=== PATIENT | male | born 1945 | race Caucasian/White ===

== ENCOUNTER 2020-07-05 06:45 | Inpatient (IN) | payer MEDICARE, MEDICAID, SELFPAY ==
[2020-07-05] VITALS (10 sets, daily range): BP systolic 106–130; BP diastolic 49–63; PULSE 77–121; RESP 16–20; TEMP 35.9–36.3; O2SAT 94–100; BMI 28.3
--- NOTE | ~2020-07-05 | XR_ITS ---
EXAMINATION: XR hip LT 2V w AP pelvis DATE: 07/06/2020 11:14 INDICATION: Left hip fracture. Bacteremia. TECHNIQUE: An anteroposterior view of the pelvis and 2 views of left hip were obtained. COMPARISON: None. FINDINGS: There is an intertrochanteric fracture deformity of proximal left femur with internal fixat ion with antegrade intramedullary coral, femoral head/neck screw, and distal interlocking screw. There is 3 mm lucency adjacent to the intramedullary coral at its proximal and lateral aspect. A fracture fra gment at the lesser trochanter is ununited. There is mild right hip osteoarthritis and moderate left hip osteoarthritis. There is moderate lumbar spondylosis. IMPRESSION: 1. Fracture deformity of proximal left femur with internal fixation. Lucency adjacent to the femoral intramedullary coral at its proximal lateral aspect may be secondary to loosening or infection. 2. Mild right hip osteoarthritis and moderate left hip osteoarthritis. Reviewed, dictated and finalized at location A. IMPRESSION: 1. Fracture deformity of proximal left femur with internal fixation. Lucency ad jacent to the femoral intramedullary coral at its proximal lateral aspect may be secondary to loosening or infection. 2. Mild right hip osteoarthritis and moderate left hip osteoarthritis.
--- NOTE | ~2020-07-05 | US_ITS ---
EXAMINATION: US venous doppler [facility] DATE: 07/06/2020 08:08 INDICATION: Lower limb edema. TECHNIQUE: Grayscale ultrasound images without and with compression and Doppler ultrasound images of the bilateral lower extremity veins were obtained. COMPARISON: None. FINDINGS: The visualized portions of right common femoral vein, profunda (deep) femoral vein, femoral vein, pop liteal vein, peroneal veins, posterior tibial veins, and greater saphenous vein outflow are patent. The visualized portions of left common femoral vein, profunda femoral vein, femoral vein, popliteal v ein, peroneal veins, posterior tibial veins, and greater saphenous vein outflow are patent. IMPRESSION: 1. No deep venous thrombosis. Reviewed, dictated and finalized at location A.
--- NOTE | ~2020-07-05 | XR_ITS ---
EXAMINATION: XR chest 1V portable DATE: 07/05/2020 11:01 INDICATION: Gastrointestinal hemorrhage. TECHNIQUE: A single frontal view of the chest was obtained. COMPARISON: Chest single view 08/09/2008, CT abdomen and pelvis 08/09/2008 FINDINGS: There is a moderate-sized left pleural effusion. There is a diffuse interstitial pattern, c onsistent with mild pulmonary edema. There are chronic airspace opacities in medial right lower lung zone, consistent with rounded atelectasis. There is a small right pleural effusion. There are airspac e opacities in left lung and right midlung zone. No pneumothorax. Cardiomegaly is noted. Median hawkins otomy wires and mediastinal surgical clips are seen, likely from prior coronary artery bypass graftin g. IMPRESSION: 1. Small right and moderate-sized left pleural effusions. 2. Mild pulmonary edema. 3. Airspace opacities in left lung and right midlung zone, consistent with atelectasis versus pneumon ia. 4. Cardiomegaly. Reviewed, dictated and finalized at location A. IMPRESSION: 1. Small right and moderate-sized left pleural effusions. 2. Mild pulmonary edema. 3. Airspace opacities in left lung and right midlung zone, consistent with atel ectasis versus pneumonia. 4. Cardiomegaly.
[2020-07-05 07:01] LABS: Basophils Percent Auto 0.1 % (0.2-1.2); Eosinophils Absolute Auto 0.1 K/mm3 (0-0.3); Eosinophils Percent Auto 0.2 % (0-4.4); Hematocrit 26.2 % (42.0-52.0); Immature Granulocyte Absolute 0.46 K/mm3 (0.00-0.031); Immature Granulocyte Percent A 1.9 % (0-0.5); Lymphocytes Absolute Auto 1.45 K/mm3 (0.9-3.2); Lymphocytes Percent Auto 6.1 % (18.3-44.2); Mean Corpuscular HGB Conc 30.5 g/dl (32-36); Mean Corpuscular Hemoglobin 29.1 pg (26-34); Mean Corpuscular Volume 95.3 fl (80-100); Mean Platelet Volume 10.7 fl (7.4-10.4); Monocytes Absolute Auto 1.1 K/mm3 (0.1-0.6); Monocytes Percent Auto 4.6 % (2.6-8.5); Neutrophils Absolute Auto 20.5 K/mm3 (1.3-6.7); Neutrophils Percent Auto 87.1 % (45.5-73.1); Nucleated Red Blood Cells Perc 0.1 % (0.0-0.2); Platelet Count Result 257 k/mm3 (150-375); Red Blood Count 2.75 M/mm3 (4.6-6.20); Red Cell Distribution Width 17.9 % (11.5-14.5); White Blood Count 23.6 K/mm3 (4.5-10.0)
--- NOTE | 2020-07-05 07:05 | PC.NURSE ---
pt O2 88 per EDP Zeus pt put on 2 L oxygen via nasal canula
[2020-07-05 07:13] LABS: Alanine Aminotransferase 23 U/L (4-50); Albumin Level 2.5 g/dL (3.5-5.1); Alkaline Phosphatase 181 U/L (38-126); Anion Gap 6 mmol/L (8-16); Aspartate Amino Transferase 44 U/L (17-59); Bilirubin,Total 0.8 mg/dL (0.2-1.3); Blood Urea Nitrogen 57 mg/dL (9-20); Calcium 7.9 mg/dL (8.4-10.2); Carbon Dioxide 29 mmol/L (22-30); Chloride 105 mmol/L (98-107); Estimated CRCL calculation 23 ml/min; Estimated Glomerular Filt Rate 31; Glucose 96 mg/dL (75-110); Sodium 140 mmol/L (137-145)
--- NOTE | 2020-07-05 07:31 | ED.GIBLEED ---
HPI - GI Bleed General Chief complaint: GI Bleed Stated complaint: ?GI Bleed Time Seen by Provider: 07/05/20 07:30 Source: patient Related Data Home Medications Medication Instructions Recorded Confirmed acetaminophen 500 mg PO TID PRN 07/05/20 albuterol mcg INHALATION 07/05/20 allopurinol 100 mg PO DAILY 07/05/20 apixaban [Eliquis] 5 mg PO BID 07/05/20 aspirin 81 mg PO DAILY 07/05/20 atorvastatin 40 mg PO HS 07/05/20 ferrous sulfate 325 mg PO BID 07/05/20 fluticasone propion-salmeterol 2 puff INHALATION Q12H 07/05/20 [Advair HFA] furosemide [Lasix] 40 mg PO BID 07/05/20 hydrocodone-acetaminophen 1 tablet PO Q8H PRN 07/05/20 ibuprofen 200 mg PO Q6H PRN 07/05/20 melatonin 5 mg PO HS PRN 07/05/20 metoprolol tartrate 50 mg PO Q12H 07/05/20 Allergies Allergy/AdvReac Type Severity Reaction Status Date / Time No Known Allergies Allergy Unverified 07/05/20 07:21 [facility] Social History Social History Smoking status: Former smoker Second hand tobacco smoke exposure: No Smoking end date: 02/08/84 Alcohol intake: current Course Vital Signs Vital signs: Vital Signs Temperature 36.3 C L 07/05/20 06:45 Pulse Rate 91 07/05/20 06:45 Respiratory Rate 16 07/05/20 06:45 Blood Pressure 124/63 07/05/20 06:45 Pulse Oximetry 95 07/05/20 06:45 Temperature 36.3 C L 07/05/20 06:45 Pulse Rate 91 07/05/20 06:45 Respiratory Rate 16 07/05/20 06:45 Blood Pressure 124/63 07/05/20 06:45 Pulse Oximetry 95 07/05/20 06:45 MDM - GI Bleed Lab Data Result diagrams: 07/05/20 06:53 07/05/20 06:53 Labs: Lab Results 07/05/20 07/05/20 07/05/20 Range/Units 06:53 06:53 06:53 WBC 23.6 H (4.5-10.0) K/mm3 RBC 2.75 L (4.6-6.20) M/mm3 Hgb 8.0 L (14.0-18.0) g/dL Hct 26.2 L (42.0-52.0) % MCV 95.3 (80-100) fl MCH 29.1 (26-34) pg MCHC 30.5 L (32-36) g/dl RDW 17.9 H (11.5-14.5) % Plt Count 257 (150-375) k/mm3 MPV 10.7 H (7.4-10.4) fl Immature Gran % (Auto) 1.9 H (0-0.5) % Neut % (Auto) 87.1 H (45.5-73.1) % Lymph % (Auto) 6.1 L (18.3-44.2) % Schuyler % (Auto) 4.6 (2.6-8.5) % Eos % (Auto) 0.2 (0-4.4) % Baso % (Auto) 0.1 L (0.2-1.2) % Lymph # (Auto) 1.45 (0.9-3.2) K/mm3 Schuyler # (Auto) 1.1 H (0.1-0.6) K/mm3 Eos # (Auto) 0.1 (0-0.3) K/mm3 Baso # (Auto) 0.0 (0.0-0.1) K/mm3 Abs Immat Gran (auto) 0.46 H (0.00-0.031) K/mm3 Absolute Neuts (auto) 20.5 H (1.3-6.7) K/mm3 Absolute Nucleated RBC 0.0 (0.0-0.012) K/mm3 Nucleated RBC % 0.1 (0.0-0.2) % PT Pending INR Pending APTT Pending Sodium 140 (137-145) mmol/L Potassium 4.0 (3.4-5.0) mmol/L Chloride 105 (98-107) mmol/L Carbon Dioxide 29 (22-30) mmol/L Anion Gap 6 L (8-16) mmol/L BUN 57 H (9-20) mg/dL Creatinine 2.10 H (0.7-1.3) mg/dL Estim Creat Clear Calc 23 ml/min Estimated GFR 31 L (59 - ) Glucose 96 (75-110) mg/dL Calcium 7.9 L (8.4-10.2) mg/dL Total Bilirubin 0.8 (0.2-1.3) mg/dL AST 44 (17-59) U/L ALT 23 (4-50) U/L Alkaline Phosphatase 181 H (38-126) U/L Total Protein 7.0 (6.3-8.2) g/dL Albumin 2.5 L (3.5-5.1) g/dL Blood Type Antibody Screen 07/05/20 Range/Units 06:53 WBC (4.5-10.0) K/mm3 RBC (4.6-6.20) M/mm3 Hgb (14.0-18.0) g/dL Hct (42.0-52.0) % MCV (80-100) fl MCH (26-34) pg MCHC (32-36) g/dl RDW (11.5-14.5) % Plt Count (150-375) k/mm3 MPV (7.4-10.4) fl Immature Gran % (Auto) (0-0.5) % Neut % (Auto) (45.5-73.1) % Lymph % (Auto) (18.3-44.2) % Schuyler % (Auto) (2.6-8.5) % Eos % (Auto) (0-4.4) % Baso % (Auto) (0.2-1.2) % Lymph # (Auto) (0.9-3.2) K/mm3 Schuyler # (Auto) (0.1-0.6) K/mm3 Eos # (Auto) (0-0.3) K/mm3 Baso # (Auto) (0.0-0.1) K/mm3 Abs Immat Gran (auto) (0.00-0.031) K/mm3 Absolute Neuts (auto) (1.3-6.7)
--- NOTE | 2020-07-05 07:58 | ED.GIBLEED ---
HPI - GI Bleed General Chief complaint: GI Bleed Stated complaint: ?GI Bleed Time Seen by Provider: 07/05/20 07:30 Source: patient and EMS Mode of arrival: EMS Limitations: no limitations History of Present Illness HPI Narrative: 75 years old white female presents with black tarry stool noticed at the [facility] this morning. Patient denying any nausea, vomiting, abdominal pain, diarrhea, fever or chills. Patient on aspirin and Eliquis. Patient had history of GI bleed of unknown etiology, was seen by a restorative care technician in another hospital, Related Data Home Medications Medication Instructions Recorded Confirmed acetaminophen 500 mg PO TID PRN 07/05/20 albuterol mcg INHALATION 07/05/20 allopurinol 100 mg PO DAILY 07/05/20 apixaban [Eliquis] 5 mg PO BID 07/05/20 aspirin 81 mg PO DAILY 07/05/20 atorvastatin 40 mg PO HS 07/05/20 cholecalciferol (vitamin D3) 25 mcg PO DAILY 07/05/20 ferrous sulfate 325 mg PO BID 07/05/20 fluticasone propion-salmeterol 2 puff INHALATION Q12H 07/05/20 [Advair HFA] furosemide [Lasix] 40 mg PO BID 07/05/20 hydrocodone-acetaminophen 1 tablet PO Q8H PRN 07/05/20 ibuprofen 200 mg PO Q6H PRN 07/05/20 melatonin 5 mg PO HS PRN 07/05/20 metoprolol tartrate 50 mg PO Q12H 07/05/20 mirtazapine 15 mg PO HS 07/05/20 [id number] K tablet PO 07/05/20 [Adults Multivitamin] nystatin 1 applic TOPICAL QID 07/05/20 pantoprazole 40 mg PO QAM 07/05/20 polyethylene glycol 3350 [Miralax] 17 g PO DAILY 07/05/20 potassium chloride 20 meq PO DAILY 07/05/20 sertraline 50 mg PO DAILY 07/05/20 tiotropium bromide [Spiriva 2 puff INHALATION DAILY 07/05/20 Respimat] Allergies Allergy/AdvReac Type Severity Reaction Status Date / Time No Known Allergies Allergy Unverified 07/05/20 07:21 Review of Systems Review of Systems: Narrative: CONSTITUTIONAL: Denies fever, chills, or sweats. EYES: Denies visual changes, redness, or discharge. ENT: Denies rhinorrhea, congestion, sore throat, or otalgia. CARDIOVASCULAR: Denies chest pain, palpitations, or edema. RESPIRATORY: Denies cough or dyspnea. GASTROINTESTINAL: Denies abdominal pain, nausea, vomiting, or diarrhea. GENITOURINARY: Denies dysuria or hematuria. SKIN: Denies rash or itching. MUSCULOSKELETAL: Denies back pain, joint pain, or myalgia. NEUROLOGIC: Denies headache, numbness, or weakness. PSYCHIATRIC: Denies anxiety or depression. [facility], [facility] Social History Social History Smoking status: Former smoker Second hand tobacco smoke exposure: No Smoking end date: 02/08/84 Alcohol intake: current Exam Narrative: Exam Narrative: General appearance: Well-developed, well-nourished Skin: Normal color Chest and respiratory: Airway patent, no respiratory distress, no accessory muscle use Heart: Regular rate/rhythm Abdomen: Soft, nontender, no organomegaly, quiet bowel sounds, rectal exam showed dark red blood, guaiac positive Vascular: Normal peripheral pulses, normal capillary refill. Musculoskeletal: Normal range of motion, nontender back Neurologic: Alert and oriented ?3, Course Course Emergency Course: Stable Consultations Consultation #1: Dr. Hernandez Date: 07/05/20 Time: 12:12 Vital Signs Vital signs: Vital Signs Temperature 36.3 C L 07/05/20 06:45 Pulse Rate 91 07/05/20 06:45 Respiratory Rate 16 07/05/20 06:45 Blood Pressure 124/63 07/05/20 06:45 Pulse Oximetry 95 07/05/20 06:45 Temperature 36.3 C L 07/05/20 06:45 Pulse Rate 86 07/05/20 10:27 Respiratory Rate 18 07/05/20 10:27 Blood Pressure 106/57 L 07/05/20 10:27 Pulse Oximetry 98 07/05/20
[2020-07-05 08:17] LABS: INR 1.8; Prothrombin Time 21.1 Seconds (11.1-14.7)
[2020-07-05] MEDS: PANTOPRAZOLE SODIUM IV 40 MG VIAL IV PUSH ×2 (08:20→20:40)
[2020-07-05 08:21] LABS: Partial Thromboplastin Time 48.8 SECONDS (22.3-36.8)
[2020-07-05 10:51] LABS: Add Urine Microscopic? NO; Appearance Urine Clear (Clear); Bilirubin Urine Negative (Negative); Blood Urine Negative (Negative); Color Urine Yellow (Yellow); Glucose Urine UA Negative (Negative); Ketones Urine Negative (Negative); Leukocyte Esterase Ur Negative LEU/UL (Negative); Nitrate Urine Negative (Negative); Protein Urine Negative (Negative); Urobilinogen Urine Negative mg/dL (<2.0)
--- NOTE | 2020-07-05 14:12 | ADMGEN ---
This patient, Manuel Sue, was admitted to [facility] Surg Room 326-01. Patient/family oriented to hospital policies and general routines including ID bracelet, bed and alarms, visiting hours, pain management, procedures, bathroom and other care routines, personal items, smoking policy, room service/diet, and visiting hours. Information on how to activate the Rapid Response Team has been discussed. Patient/Family are encouraged to report perceived risks to care and to ask questions if they do not understand what they are told or what they should do.
[2020-07-05] MEDS: SODIUM CHLORIDE 0.9% IV 1,000 ML 125 ML IV CONT (14:41)
[2020-07-05 14:42] LABS: Hematocrit 24.3 % (42.0-52.0); Hemoglobin 7.4 g/dL (14.0-18.0)
[2020-07-05 15:58] LABS: Procalcitonin 0.5 ng/mL
--- NOTE | 2020-07-05 16:45 | PM.IMHP ---
H&P: HPI History of Present Illness Date/Time: 07/05/20 16:45 Chief Complaint: Dark stool. Narrative: This is a 75-year-old male with history of atrial fibrillation on long-term anticoagulation, mixed systolic and diastolic congestive heart failure, coronary artery disease status post bypass, hypertension, hyperlipidemia, GERD, and COPD who to the emergency department earlier today via EMS from [facility] for evaluation of dark stools. It is my understanding that a staff member at [facility] noticed dark, tarry stools in his depends this morning which prompted the visit to the ER today. I was told a stool sample was obtained yesterday as well although is unclear what testing was ordered. He does endorse intermittent troubles with constipation and has to strain to have bowel movements on occasion. Gross blood was noted on exam per the emergency department physician and he is being admitted in this setting for further workup. He demonstrates conversational dyspnea at the time my evaluation but denies feeling any more short of breath than usual. With further questioning he does mention increasing lower extremity edema over the past 4 days or so, however. At this time he has no significant complaints aside from a mild posterior headache. He specifically denies near syncope, syncope, nausea, vomiting, hematemesis, abdominal pain, and epigastric pain. He also denies GERD and indigestion however it is my understanding has a history of GI bleed and is on pantoprazole. He cannot give me any further details with regards to that GI bleed and it is unclear where he was hospitalized for that. Review of Systems Review of Systems: Narrative: Twelve systems were reviewed with pertinent positives and negatives as per HPI. Reports chronic issues with rhinorrhea. He has had a mild nonproductive cough since having COVID many months ago. He has chronic dyspnea on exertion which is unchanged. Denies orthopnea and PND. Worsening lower extremity edema recently as per HPI. No history of venous thromboembolism. He denies abdominal bloating and distention. He also denies indigestion GERD symptoms however he does take pantoprazole. No chest pain or pleuritic pain. He denies palpitations. [facility] Past Medical History Medical History (Updated 07/05/20 @ 19:24 by Aureila Jaimes PA-C) Atrial fibrillation Chronic anemia Chronic obstructive pulmonary disease Congestive heart failure Mixed systolic and diastolic congestive heart failure. Coronary artery disease COVID-19 (2020) Current use of [facility] anticoagulation On apixaban for stroke prophylaxis due to AFib. Gastroesophageal reflux disease Gout Hyperlipidemia Hypertension Shingles Vitamin D deficiency Surgical History Surgical History (Updated 07/05/20 @ 19:18 by Aurelia Jaimes PA-C) History of appendectomy History of coronary artery bypass graft Three vessel bypass. History of heart valve replacement History of hip surgery ORIF left hip fracture. History of neck surgery Status post surgical removal of malignant neoplasm of skin Excision squamous cell carcinoma. Family History Family History (Updated 07/05/20 @ 19:19 by Aurelia Jaimes PA-C) Mother Heart disease Father Lung disease Sibling Diabetes mellitus Sibling Heart disease Social History Social History (Updated 07/05/20 @ 19:21 by Aurelia Jaimes PA-C) Social History: The patient has been at [facility] since fracturing his hip within the last year or so. 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 He was a heavy smoker, up to 3 packs a day and quit in 1985. He denies alcohol and illicit substance abuse. He designates his daughter, Jenifer Menendez, as his surrogate decision maker. Code status: Full code. Smoking end date: 02/08/84 Sexual Orientation (if Verbalized by the Patient): Straight or Heterosexual Meds Home Medications and Allergies Home Medications Medication Instructions Recorde
[2020-07-05 20:11] LABS: Hematocrit 22.3 % (42.0-52.0)
[2020-07-05 20:18] LABS: Hemoglobin 6.8 g/dL (14.0-18.0)
[2020-07-05] MEDS: FLUTICASONE/SALMETEROL 230-21 MCG INHALER 1 PUFF 2 PUFF INHALATION (20:29)
[2020-07-05] MEDS: ALBUTEROL SULFATE (*SP) AEROSOL 1 PUFF INHALATION (20:29)
[2020-07-05] MEDS: FUROSEMIDE INJ 40 MG/4 ML VIAL 20 MG IV PUSH (20:32)
[2020-07-05] MEDS: FERROUS SULFATE 324 MG TABLET PO (20:37)
[2020-07-05] MEDS: MIRTAZAPINE 15 MG TABLET PO (20:39)
[2020-07-05] MEDS: AMOXICILLIN/CLAVULANATE K 875-125 MG TAB 1 TABLET PO (20:39)
[2020-07-05] MEDS: ATORVASTATIN 40 MG TABLET PO (20:39)
[2020-07-05] MEDS: METOPROLOL TARTRATE 50 MG TAB PO (20:40)
[2020-07-06] VITALS (20 sets, daily range): BP systolic 95–123; BP diastolic 38–83; PULSE 73–120; RESP 14–18; TEMP 35.7–36.6; O2SAT 90–95
[2020-07-06] MEDS: SODIUM CHLORIDE 0.9% IV 250 ML 30 ML IV CONT (02:15)
[2020-07-06] MEDS: TUBING, BLOOD PLUM PUMP TUBING 1 EACH XX ×2 (02:16→08:49)
[2020-07-06] MEDS: FUROSEMIDE INJ 40 MG/4 ML VIAL 20 MG IV PUSH ×2 (05:39→17:12)
[2020-07-06] MEDS: HYDROcodone/acetaminophen (*CRX) 5-325 MG TABLET 1 TAB PO (05:42)
[2020-07-06] MEDS: FLUTICASONE/SALMETEROL 230-21 MCG INHALER 1 PUFF 2 PUFF INHALATION ×2 (08:52→20:46)
[2020-07-06] MEDS: ALBUTEROL SULFATE (*SP) AEROSOL 1 PUFF INHALATION ×2 (08:53→20:46)
[2020-07-06] MEDS: MULTIVITAMINS /C LUTEIN (CENTRUM SILVER) TABLET *BKC 1 TAB PO (08:54)
[2020-07-06] MEDS: SERTRALINE HCL 50 MG TABLET PO (08:54)
[2020-07-06] MEDS: POTASSIUM CHLORIDE 20 MEQ TABLET.ER PO (08:54)
[2020-07-06] MEDS: METOPROLOL TARTRATE 50 MG TAB PO ×2 (08:54→20:47)
[2020-07-06] MEDS: FERROUS SULFATE 324 MG TABLET PO ×2 (08:55→17:12)
[2020-07-06] MEDS: allopurinoL 100 MG TABLET PO (08:55)
[2020-07-06] MEDS: AMOXICILLIN/CLAVULANATE K 875-125 MG TAB 1 TABLET PO ×2 (08:55→20:47)
[2020-07-06] MEDS: CHOLECALCIFEROL 1,000 UNITS TABLET 1000 UNITS PO (08:55)
--- NOTE | 2020-07-06 09:49 | ECG_ITS ---
Measurements Intervals [place] Rate: 119 P: ND: 0 QRS: 26 QRSD: 94 T: 33 QT: 351 QTc: 494 Interpretive Statements ATRIAL FLUTTER/TACHYCARDIA WITH RAPID VENTRICULAR RESPONSE VENTRICULAR PREMATURE COMPLEXES LOW VOLTAGE- LIMB LEADS BORDERLINE ST-T WAVE ABNORMALITY- INF/HIGH LAT LEADS ABNORMAL ECG Electronically Signed On 07-06-2020 19:42:50 CDT by Luciano Steiner D.O.
[2020-07-06 10:13] LABS: Hematocrit 33.5 % (42.0-52.0); Hemoglobin 10.7 g/dL (14.0-18.0); Mean Corpuscular HGB Conc 31.9 g/dl (32-36); Mean Corpuscular Hemoglobin 29.1 pg (26-34); Platelet Count Result 194 k/mm3 (150-375); Red Blood Count 3.68 M/mm3 (4.6-6.20); Red Cell Distribution Width 17.3 % (11.5-14.5); White Blood Count 20.9 K/mm3 (4.5-10.0)
[2020-07-06 10:24] LABS: Alanine Aminotransferase 20 U/L (4-50); Albumin Level 2.7 g/dL (3.5-5.1); Alkaline Phosphatase 156 U/L (38-126); Anion Gap 8 mmol/L (8-16); Aspartate Amino Transferase 30 U/L (17-59); Bilirubin,Total 1.1 mg/dL (0.2-1.3); Blood Urea Nitrogen 51 mg/dL (9-20); Calcium 8.1 mg/dL (8.4-10.2); Carbon Dioxide 30 mmol/L (22-30); Chloride 100 mmol/L (98-107); Estimated CRCL calculation 32 ml/min; Estimated Glomerular Filt Rate 45; Glucose 159 mg/dL (75-110); Potassium 3.2 mmol/L (3.4-5.0); Sodium 138 mmol/L (137-145)
--- NOTE | 2020-07-06 10:56 | PM.IMPN ---
Progress Note: A&P Assessment and Plan (1) GI bleed: Qualifiers: GI bleed type/associated pathology: melena Qualified Code(s): K92.1 - Melena Code(s): K92.2 - Gastrointestinal hemorrhage, unspecified Status: Acute Assessment and Plan: There are reports of dark stools and gross blood coming from the patient that time -his hemoglobin dropped down to 6.8 and improved to 10.7 with 2 units of blood -Home eliquis has been held. -GI consulted -no anemia labs done prior to transfusions but suspect due to GI blood loss -monitor with serial H&Hs and I have asked nursing staff to call me if he has any further dark stool or blood -continue tele -INR was 1.8, will consider FFP if pt continues to bleed. (2) Bacteremia: Code(s): R78.81 - Bacteremia Status: Acute Assessment and Plan: Noted on both blood cultures -growing gram + cocci in both -Pt has a leukocytosis of 23.6 on admission -He had a hip sx back in august 2019 according to daughter, unclear if he has hardware. Obtain xray -UA neg, concerns for PNA but pt not having symptoms. -Skin infection? contamination? (less likely due to it being in both bottles -will start vancomycin and consult infectious disease -Will order echo (3) Sepsis: Code(s): A41.9 - Sepsis, unspecified organism Status: Acute Assessment and Plan: 2/2 above -Continue abx (4) ADELA (acute kidney injury): Code(s): N17.9 - Acute kidney failure, unspecified Status: Acute Assessment and Plan: Improving with blood transfusions and lasix -Will continue IV lasix and monitor closely (5) Pleural effusion: Code(s): J90 - Pleural effusion, not elsewhere classified Status: Acute Assessment and Plan: CXR shows small rightand moderate left pleural effusions with mild pulmonary edema -suspect due to high outpt heart failure. PNA being the cause seems less likely -continue lasix -obtain echo, daughter unsure if he has systolic or diastolic HF (6) Anemia: Qualifiers: Anemia type: unspecified type Qualified Code(s): D64.9 - Anemia, unspecified Code(s): D64.9 - Anemia, unspecified Status: Acute Assessment and Plan: As above (7) Atrial fibrillation: Code(s): I48.91 - Unspecified atrial fibrillation Status: Acute Assessment and Plan: Slighty tachy on exam -likely due to infection and GI bleed -Continue metoprolol and tele -ekg reviewed (8) Congestive heart failure: Code(s): I50.9 - Heart failure, unspecified Status: Acute Assessment and Plan: As above -suspect high outpt heart failure at this time -obtain echo -Continue lasix (9) Leukocytosis: Qualifiers: Leukocytosis type: unspecified Qualified Code(s): D72.829 - Elevated white blood cell count, unspecified Code(s): D72.829 - Elevated white blood cell count, unspecified Status: Acute Assessment and Plan: As above (10) Hypertension: Code(s): I10 - Essential (primary) hypertension Status: Acute Assessment and Plan: last bp 112/83 -monitor closely with infection and GI bleed. -He is on metoprolol and lasix (11) Chronic obstructive pulmonary disease: Code(s): J44.9 - Chronic obstructive pulmonary disease, unspecified Status: Acute Assessment and Plan: Chronic, no wheezing Time Spent With Patient Time with patient: 25 - 35 minutes Subjective Date/time seen: 07/06/20 10:56 Interval history: Pt is a 75 year old male here for GI bleed, bacteremia, and CHF exacerbation. Patient was seen today and is confused but able to answer some questions. He says he has pain all over . He does not have any specific pain at specific areas but just generally feels very achy. Denies chest pain, shortness of breath, cough, fevers, chills, nausea or vomiting. He has not lynn
[2020-07-06] MEDS: POTASSIUM CHLORIDE 20 MEQ TABLET 40 MEQ PO (12:04)
--- NOTE | 2020-07-06 13:58 | WPDGICN ---
Assessment and Plan Assessment and plan (1) GI bleed: Qualifiers: GI bleed type/associated pathology: melena Qualified Code(s): K92.1 - Melena Code(s): K92.2 - Gastrointestinal hemorrhage, unspecified Status: Acute Assessment and Plan: continue supportive care colonoscopy and egd tomorrow to check source of bleeding keep holding eliquis iv protonix (2) Melena: Code(s): K92.1 - Melena Status: Acute Assessment and Plan: received blood transfusion iv protonix (3) Acute blood loss anemia: Code(s): D62 - Acute posthemorrhagic anemia Status: Acute Assessment and Plan: continue to monitor for more signs of bleeding (4) Bacteremia: Code(s): R78.81 - Bacteremia Status: Acute Assessment and Plan: + blood cultures, on iv antibiotics, awaiting final I&D (5) Sepsis: Code(s): A41.9 - Sepsis, unspecified organism Status: Acute (6) ADELA (acute kidney injury): Code(s): N17.9 - Acute kidney failure, unspecified Status: Acute Assessment and Plan: on treatment (7) Congestive heart failure: Code(s): I50.9 - Heart failure, unspecified Status: Acute (8) Leukocytosis: Qualifiers: Leukocytosis type: unspecified Qualified Code(s): D72.829 - Elevated white blood cell count, unspecified Code(s): D72.829 - Elevated white blood cell count, unspecified Status: Acute (9) [facility]: Code(s): Z79.01 - 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 He was brought here for new onset of dark stools, patient is not best historian but his hb mid 6, given blood transfusion and started on iv protonix (based on history apparently also had remote history of GIB- unknown details)- patient does not remember having scopes. ER physician found gross blood in rectal exam, also had leukocytosis and blood cultures thus far grow of gram positive (on antibiotics now). Review of Systems Constitutional: Constitutional: Reports weakness Eyes: Eyes: Denies blurry vision ENT: Reports Normal hearing present Cardiovascular: Cardiovascular: Denies chest pain Respiratory: Respiratory: Denies cough Gastrointestinal: Gastrointestinal: Reports melena Genitourinary: Genitourinary: Denies hematuria Musculoskeletal: Musculoskeletal: Reports arthralgias Integumentary/Breasts: Skin/Breast: Denies dry skin Neurologic: Denies numbness Psychiatric: Psychiatric: Reports no additional psychiatric complaints [facility] Past Medical History Medical History (Updated 07/06/20 @ 14:03 by Alejandro Dorsey MD) Acute blood loss anemia Atrial fibrillation Chronic anemia Chronic obstructive pulmonary disease Congestive heart failure Mixed systolic and diastolic congestive heart failure. Coronary artery disease COVID-19 (2020) [facility] of [facility] On apixaban for stroke prophylaxis due to AFib. Gastroesophageal reflux disease Gout Hyperlipidemia Hypertension Melena Shingles Vitamin D deficiency Surgical History Surgical History (Updated 07/05/20 @ 19:18 by Aurelia Jaimes PA-C) History of appendectomy History of coronary artery bypass graft Three vessel bypass. History of heart valve replacement History of hip surgery ORIF left hip fracture. History of neck surgery Status post surgical removal of malignant neoplasm of skin Excision squamous cell carcinoma. Family History Family History (Update
[2020-07-06 16:09] LABS: Hematocrit 31.5 % (42.0-52.0); Hemoglobin 9.8 g/dL (14.0-18.0)
[2020-07-06] MEDS: BISACODYL 5 MG TABLET EC 20 MG PO (17:12)
[2020-07-06] MEDS: polyethylene glycoL 3350 238 GM BOTTLE PO (17:12)
[2020-07-06 19:51] LABS: Hematocrit 28.8 % (42.0-52.0); Hemoglobin 9.3 g/dL (14.0-18.0)
[2020-07-06] MEDS: PANTOPRAZOLE SODIUM IV 40 MG VIAL IV PUSH (20:46)
[2020-07-06] MEDS: MIRTAZAPINE 15 MG TABLET PO (20:46)
[2020-07-06] MEDS: MICONAZOLE NITRATE 2% CREAM 30 GM TUBE 1 APPLIC TOPICAL (20:46)
[2020-07-06] MEDS: ATORVASTATIN 40 MG TABLET PO (20:47)
[2020-07-07] VITALS (15 sets, daily range): BP systolic 103–133; BP diastolic 55–74; PULSE 70–128; RESP 12–24; TEMP 36.2–37.4; O2SAT 88–100
[2020-07-07 01:25] LABS: Hematocrit 31.5 % (42.0-52.0); Hemoglobin 10.1 g/dL (14.0-18.0)
[2020-07-07] MEDS: MAGNESIUM CITRATE 300 ML BTL PO (02:17)
[2020-07-07 06:15] LABS: Basophils Absolute Auto 0.1 K/mm3 (0.0-0.1); Basophils Percent Auto 0.3 % (0.2-1.2); Eosinophils Absolute Auto 0.1 K/mm3 (0-0.3); Eosinophils Percent Auto 0.4 % (0-4.4); Hematocrit 29.5 % (42.0-52.0); Hemoglobin 9.3 g/dL (14.0-18.0); Immature Granulocyte Absolute 0.45 K/mm3 (0.00-0.031); Immature Granulocyte Percent A 2.3 % (0-0.5); Lymphocytes Absolute Auto 1.05 K/mm3 (0.9-3.2); Lymphocytes Percent Auto 5.3 % (18.3-44.2); Mean Corpuscular HGB Conc 31.5 g/dl (32-36); Mean Corpuscular Hemoglobin 28.4 pg (26-34); Mean Corpuscular Volume 90.2 fl (80-100); Mean Platelet Volume 10.9 fl (7.4-10.4); Monocytes Absolute Auto 1.2 K/mm3 (0.1-0.6); Monocytes Percent Auto 6.1 % (2.6-8.5); Neutrophils Absolute Auto 17.1 K/mm3 (1.3-6.7); Neutrophils Percent Auto 85.6 % (45.5-73.1); Platelet Count Result 198 k/mm3 (150-375); Red Blood Count 3.27 M/mm3 (4.6-6.20); Red Cell Distribution Width 17.7 % (11.5-14.5)
[2020-07-07 06:40] LABS: Anion Gap 7 mmol/L (8-16); Blood Urea Nitrogen 42 mg/dL (9-20); Calcium 7.8 mg/dL (8.4-10.2); Carbon Dioxide 31 mmol/L (22-30); Chloride 97 mmol/L (98-107); Estimated CRCL calculation 43 ml/min; Estimated Glomerular Filt Rate > 60; Glucose 137 mg/dL (75-110); Magnesium 1.9 mg/dL (1.6-2.3); Potassium 3.6 mmol/L (3.4-5.0); Sodium 135 mmol/L (137-145)
[2020-07-07 06:51] LABS: CRP 25.3 mg/dL (<1.0)
--- NOTE | 2020-07-07 07:05 | WPDANESEPPF ---
Anes - Initial Pre Proc Eval Procedure: Egd and Colonosopy Date/Time: 07/07/20 07:05 Surgeon: David Pre Op Diagnosis: melena Pre Op Diagnosis: GI bleed/anemia/pneumonia/leukocytosis/pleural eff Patient Data Age: 75 Gender: M Height: 1.65 m Weight: 65.6 kg Last Vital Signs Temp 36.4 C L 07/07/20 05:43 Pulse 70 07/07/20 05:43 Resp 18 07/07/20 05:43 BP 126/60 07/07/20 05:43 Pulse Ox 94 07/07/20 05:43 Allergies Allergy/AdvReac Type Severity Reaction Status Date / Time No Known Allergies Allergy Verified 07/07/20 07:53 Home Medications Medication Instructions Recorded Confirmed Type acetaminophen 500 mg PO TID PRN 07/05/20 07/05/20 History albuterol 90 mcg INHALATION BID 07/05/20 07/05/20 History allopurinol 100 mg PO DAILY 07/05/20 07/05/20 History apixaban [Eliquis] 5 mg PO BID 07/05/20 07/05/20 History aspirin 81 mg PO DAILY 07/05/20 07/05/20 History atorvastatin 40 mg PO HS 07/05/20 07/05/20 History cholecalciferol (vitamin D3) 25 mcg PO DAILY 07/05/20 07/05/20 History ferrous sulfate 325 mg PO BID 07/05/20 07/05/20 History fluticasone propion-salmeterol 2 puff INHALATION Q12H 07/05/20 07/05/20 History [Advair HFA] furosemide [Lasix] 40 mg PO BID 07/05/20 07/05/20 History hydrocodone-acetaminophen 1 tablet PO Q8H PRN 07/05/20 07/05/20 History ibuprofen 200 mg PO Q6H PRN 07/05/20 07/05/20 History melatonin 5 mg PO HS PRN 07/05/20 07/05/20 History metoprolol tartrate 50 mg PO Q12H 07/05/20 07/05/20 History mirtazapine 15 mg PO HS 07/05/20 07/05/20 History pyqnmfaseivr-fae-euam-FA-vit K 400 tablet PO DAILY 07/05/20 07/05/20 History [Adults Multivitamin] nystatin 1 applic TOPICAL QID 07/05/20 07/05/20 History pantoprazole 40 mg PO QAM 07/05/20 07/05/20 History polyethylene glycol 3350 [Miralax] 17 g PO DAILY 07/05/20 07/05/20 History potassium chloride 20 meq PO DAILY 07/05/20 07/05/20 History sertraline 50 mg PO DAILY 07/05/20 07/05/20 History tiotropium bromide [Spiriva 2 puff INHALATION DAILY 07/05/20 07/05/20 History Respimat] Laboratory Tests 07/05/20 07/06/20 07/06/20 06:53 09:55 09:55 WBC 20.9 K/mm3 H K/mm3 (4.5-10.0) RBC 3.68 M/mm3 L M/mm3 (4.6-6.20) Hgb 10.7 g/dL L D g/dL (14.0-18.0) Hct 33.5 % L % (42.0-52.0) MCV 91.0 fl fl (80-100) MCH 29.1 pg pg (26-34) MCHC 31.9 g/dl L g/dl (32-36) RDW 17.3 % H % (11.5-14.5) Plt Count 194 k/mm3 k/mm3 (150-375) MPV 11.0 fl H fl (7.4-10.4) Immature Gran % (Auto) Neut % (Auto) Lymph % (Auto) Centre % (Auto) Eos % (Auto) Baso % (Auto) Lymph # (Auto) Centre # (Auto) Eos # (Auto) Baso # (Auto) Abs Immat Gran (auto) Absolute Neuts (auto) Absolute Nucleated RBC Nucleated RBC % Sodium 138 mmol/L mmol/L (137-145) Potassium 3.2 mmol/L L mmol/L (3.4-5.0) Chloride 100 mmol/L mmol/L (98-107) Carbon Dioxide 30 mmol/L mmol/L (22-30) Anion Gap 8 mmol/L mmol/L (8-16) BUN 51 mg/dL H mg/dL (9-20) Creatinine 1.50 mg/dL H mg/dL (0.7-1.3) Estim Creat Clear Calc 32 ml/min ml/min Estimated GFR 45 L (59 - ) Glucose 159 mg/dL H mg/dL (75-110) Calcium 8.1 mg/dL L mg/dL (8.4-10.2) Magnesium 2.0 mg/dL mg/dL (1.6-2.3) Total Bilirubin 1.1 mg/dL mg/dL (0.2-1.3) AST 30 U/L U/L (17-59) ALT 20 U/L U/L (4-50) Alkaline Phosphatase 156 U/L H U/L (38-126) C-Reactive Protein Total Protein 7.0 g/dL g/dL (6.3-8.2) Albumin 2.7 g/dL L g/dL (3.5-5.1) Crossmatch See Detail 07/06/20 07/06/20 07/07/20 15:30 19:37 01:13 WBC RBC
[2020-07-07] MEDS: BENZOCAINE (*SP) 60 ML SPRAY CAN (HURRICAINE) 1 SPRAY MUCOUS MEM (08:01)
[2020-07-07] MEDS: LACTATED RINGERS 1,000 ML 150 ML IV CONT (08:01)
--- NOTE | 2020-07-07 08:17 | SUR.OPER ---
EGD ENDED 809, COLONOSCOPY STARTED 815
--- NOTE | 2020-07-07 10:38 | PM.CNGS ---
Assessment and Plan Assessment and plan (1) Colonic mass: Code(s): K63.89 - Other specified diseases of intestine Status: Acute Assessment and Plan: await biopsy results, CEA and CT ordered, will also get oncology consult as daughter would like to speak with oncologist re: prognosis given pt poor med condition, long d/w daughter and pt is poor surgical candidate, she would like to talk everything over with rest of family before any decisions are made (2) Acute blood loss anemia: Code(s): D62 - Acute posthemorrhagic anemia Status: Acute Assessment and Plan: stable, likely from sigmoid mass History of Present Illness Consult details Consult date: 07/07/20 Reason for consult: other (sigmoid colon mass) Requesting physician: Alejandro Dorsey MD Narrative: Pt is a 75 y/o M c multiple med issues that presented from [facility] c anemia, bloody stools. Pt is a poor historian and most information obtained via chart. Pt denies any abdominal pain. Pt had colonoscopy today and was noted to have mass in sigmoid colon that was quite friable. Daughter is present today and we did have a discussion about findings from scope. Review of Systems Review of Systems: ROS unobtainable: Yes unobtainable due to medical condition and unobtainable due to mental status PMFSH Past Medical History Medical History Acute blood loss anemia Atrial fibrillation Chronic anemia Chronic obstructive pulmonary disease Congestive heart failure Mixed systolic and diastolic congestive heart failure. Coronary artery disease COVID-19 (2020) Current use of meterman anticoagulation On apixaban for stroke prophylaxis due to AFib. Gastroesophageal reflux disease Gout Hyperlipidemia Hypertension Melena Shingles Vitamin D deficiency Surgical History Surgical History History of appendectomy History of coronary artery bypass graft Three vessel bypass. History of heart valve replacement History of hip surgery ORIF left hip fracture. History of neck surgery Status post surgical removal of malignant neoplasm of skin Excision squamous cell carcinoma. Family History Family History Mother Heart disease Father Lung disease Sibling Diabetes mellitus Sibling Heart disease Social History Social History Social History: The patient has been at [facility] since fracturing his hip within the last year or so. 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 He was a heavy smoker, up to 3 packs a day and quit in 1985. He denies alcohol and illicit substance abuse. He designates his daughter, Jenifer Menendez, as his surrogate decision maker. Code status: Full code. Smoking end date: 02/08/84 Sexual Orientation (if Verbalized by the Patient): Straight or Heterosexual Meds Home Medications and Allergies Home Medications Medication Instructions Recorded Confirmed Type acetaminophen 500 mg PO TID PRN 07/05/20 07/05/20 History albuterol 90 mcg INHALATION BID 07/05/20 07/05/20 History allopurinol 100 mg PO DAILY 07/05/20 07/05/20 History apixaban [Eliquis] 5 mg PO BID 07/05/20 07/05/20 History aspirin 81 mg PO DAILY 07/05/20 07/05/20 History atorvastatin 40 mg PO HS 07/05/20 07/05/20 History cholecalciferol (vitamin D3) 25 mcg PO DAILY 07/05/20 07/05/20 History ferrous sulfate 325 mg PO BID 07/05/20 07/05/20 History fluticasone propion-salmeterol 2 puff INHALATION Q12H 07/05/20 07/05/20 History [Advair HFA] furosemide [Lasix] 40 mg PO BID 07/05/20 07/05/20 History hydrocodone-acetaminophen 1 tablet PO Q8H PRN 07/05/20 07/05/20 History ibuprofen 200 mg PO Q6H PRN 07/05/20 07/05/20 History melatonin 5 mg PO HS PRN 07/05/20 07/05/20 History metoprolol tartrate 50 mg PO Q12H 07/05/20 07/05/20 History mirtazapine 15
--- NOTE | 2020-07-07 10:47 | WPDINFPN2 ---
Progress Note: A&P Assessment and Plan (1) Bacteremia: Code(s): R78.81 - Bacteremia Status: Acute Assessment and Plan: S aureus bacteremia with infection. REC Vanc appropriate at this time. If cancer is confirmed, he wishes no curative treatment (including antibiotics). Subjective Date/time seen: 07/07/20 10:47 Objective Data Vital Signs Vital Signs: Vital Signs - 24 hr 07/06/20 12:00 07/06/20 14:00 07/06/20 16:00 Temperature 36.6 C Pulse Rate 86 92 79 Respiratory Rate 18 Blood Pressure 98/74 L Pulse Oximetry 93 07/06/20 20:00 07/06/20 20:47 07/06/20 21:22 Temperature 36.2 C L Pulse Rate 87 98 120 H Respiratory Rate 18 Blood Pressure 119/69 Pulse Oximetry 95 07/07/20 00:00 07/07/20 04:00 07/07/20 05:43 Temperature 36.4 C L Pulse Rate 95 79 70 Respiratory Rate 18 Blood Pressure 126/60 Pulse Oximetry 94 07/07/20 07:54 07/07/20 09:02 07/07/20 09:12 Temperature 37.4 C Pulse Rate 77 82 95 Respiratory Rate 20 24 H 16 Blood Pressure 122/74 103/74 120/64 Pulse Oximetry 97 96 98 07/07/20 09:22 07/07/20 09:57 Temperature 36.6 C Pulse Rate 99 94 Respiratory Rate 12 20 Blood Pressure 113/55 L 133/57 L Pulse Oximetry 100 94 Intake/Output Intake/Output: Intake & Output 07/04/20 07/05/20 07/06/20 07/07/20 23:59 23:59 23:59 23:59 Intake Total 720 1970 100 Balance 720 1970 100 Meds/Results Medications: Active Medications Generic Name Dose Route Start Last Admin Trade Name Freq PRN Reason Stop Dose Admin Acetaminophen 500 mg 07/05/20 19:33 Acetaminophen 500 Mg Tablet PO TID PRN Pain 1-3 Hydrocodone Bitart/Acetaminophen 1 tab 07/05/20 19:33 07/06/20 05:42 Hydrocodone/Acetaminophen (*Crx) 5-325 Mg Tablet PO 1 tab Q8H PRN Administration Pain 4-6 Albuterol 1 puff 07/05/20 20:00 07/06/20 20:46 Albuterol Sulfate (*Sp) Aerosol 1 Puff INHALATION 1 puff Q12HRT SANDIE Administration Allopurinol 100 mg 07/06/20 09:00 07/06/20 08:55 Allopurinol 100 Mg Tablet PO 100 mg DAILY [facility] Administration Amoxicillin/Clavulanate Potassium 1 tablet 07/05/20 21:00 07/06/20 20:47 Amoxicillin/Clavulanate K 875-125 Mg Tab PO 07/10/20 21:01 1 tablet Q12HR SANDIE Administration Atorvastatin Calcium 40 mg 07/05/20 21:00 07/06/20 20:47 Atorvastatin 40 Mg Tablet PO 40 mg HS [facility] Administration Ferrous Sulfate 324 mg 07/05/20 17:00 07/06/20 17:12 Ferrous Sulfate 324 Mg Tablet PO 324 mg BIDWM SANDIE Administration Furosemide 20 mg 07/05/20 19:30 07/06/20 17:12 Furosemide Inj 40 Mg/4 Ml Vial IV PUSH 20 mg BID SANDIE Administration Vancomycin HCl 1,000 mg in 250 mls @ 200 mls/hr 07/08/20 02:00 Vancomycin 1,000 Mg/D5w 250 Ml IVPB Q24H [facility] Melatonin 5 mg 07/05/20 19:33 Melatonin 5 Mg Tablet PO HS PRN Sleep Metoprolol Tartrate 50 mg 07/05/20 21:00 07/06/20 20:47 Metoprolol Tartrate 50 Mg Tab PO 50 mg Q12HR [facility] Administration Miconazole Nitrate 1 applic 07/05/20 21:00 07/06/20 20:46 Miconazole Nitrate 2% Cream 30 Gm Tube TOPICAL 1 applic Q12HR [facility] Administration Mirtazapine 15 mg 07/05/20 21:00 07/06/20 20:46 Mirtazapine 15 Mg Tablet PO 15 mg HS [facility] Administration Multivitamins/Minerals 1 tab 07/06/20 09:00 07/06/20 08:54 Multivitamins /C Lutein (Centrum Silver) Tablet *Bkc PO 1 tab DAILY [facility] Administration Pantoprazole Sodium 40 mg 07/08/20 09:00 Pantoprazole 40 Mg Tablet PO QAM [facility] Potassium Chloride 20 meq 07/06/20 09:00 07/06/20 08:54 Potassium Chloride 20 Meq Tablet.Er PO 20 meq DAILY [facility] Administration Fluticasone/Salmeterol 2 puff 07/05/20 20:00 07/06/20 20:46 Fluticasone/Salmeterol 230-21 Mcg Inhaler 1 Puff INHALATION 2 puff Q12HRT SANDIE Administration Sertraline HCl 50 mg 07/06/20 09:00 07/06/20 08:54 Sertraline Hcl 50 Mg Tablet PO 50 mg DAILY SANDIE Administr
--- NOTE | 2020-07-07 12:02 | CONS_ITS ---
DATE OF CONSULTATION: 07/07/2020 REASON FOR CONSULTATION: Bacteremia. HISTORY OF PRESENT ILLNESS: A 75-year-old male admitted on the with melena in the setting of chronic constipation. He also had dyspnea and headache. Leukocytosis was noted and apparently for this reason, blood cultures were collected. They are now positive and consultation requested. He has had been on vancomycin. He was taken to the endoscopy suite today, where he had a friable sigmoid mass biopsied. He also had a hip fracture repair a number of years ago and does have some left hip pain now as well. There has been no drainage from his hip incision. He denies any fever, chills, sweats, or previous bloodstream infection. ALLERGIES: NONE KNOWN. MEDICATIONS: He is on extensive list of home medications. No immunosuppressants. His current antibiotics include vancomycin only. HABITS: Ex-smoker. No alcohol. FAMILY HISTORY: Heart disease, lung disease, and diabetes. PAST MEDICAL HISTORY: Skin cancer, neck surgery and hip surgery, heart valve replacement, CABG, appendectomy, previous herpes zoster, vitamin D deficiency, hypertension, hyperlipidemia, gout, GERD, recurrent virus infection earlier this year. CAD with prior heart failure, COPD and anemia and AF. SOCIAL HISTORY: His daughter is at the bedside. She or another daughter are his POA. The patient is a halfway resident ever since his hip fracture. REVIEW OF SYSTEMS: 14-point review otherwise negative, though compromised by the patient's mild dysarthria. PHYSICAL EXAMINATION: GENERAL: This is an elderly male, who appears older than his actual age, not cachectic. No respiratory distress. VITAL SIGNS: Been afebrile since arrival, 94, 20, 94%, 133/57. SKIN: Ecchymoses. Warm and dry. NODES: He has no cervical adenopathy. EENT: Conjunctivae are normal. Oropharynx, oral mucosa normal. NECK: No masses, thyromegaly, meningismus. LUNGS: Clear to auscultation and percussion. Good air entry. CARDIAC: Soft. S1, S2. Regular rate and rhythm. No murmur, gallop, or rub. ABDOMEN: Nontender, nondistended. No masses. No organomegaly. EXTREMITIES: 3+ pitting and nonpitting edema both feet. No venous varicosities. No calf tenderness. LABORATORY DATA: Blood cultures 07/05, 2/2 sets, Staph aureus to be identified further. Blood cultures just repeated short while ago. White count was 22.6 and 20.9, today 20.0, hemoglobin 9.3, platelets are 198. Differential with a minimal left shift. Chemistries with mild hyponatremia, CO2 is 31, BUN 42, creatinine 1.1, glucose 137, calcium 7.8. CRP 25. His urinalysis normal. RADIOLOGY: Chest x-ray, small right and moderate left pleural effusions, pulmonary edema, left lung and right mid lung opacities. Venous Doppler, no DVT. Left hip x-ray, fracture deformity and lucency at the intramedullary coral, hip osteoarthritis. ASSESSMENT: 1. Staph aureus bacteremia. Consider GI, skin, or musculoskeletal source. Less likely primary endovascular. Also consider pulmonary source. 2. Sigmoid mass, possible carcinoma. 3. Abnormal chest x-ray without oxygenation deficit or pulmonary symptoms, making Staph aureus pneumonia less likely. 4. Pedal edema. 5. Multiple medical problems. RECOMMENDATIONS: 1. Continue vancomycin at this time. Await susceptibilities. 2. If carcinoma is confirmed on histopathology, the patient tells me today that he wishes no attempts at curative treatment of his cancer or his infection. Rather, he would prefer a palliative care. 3. Supportive care. Thank you for asking me to see him. TORIE ROBLEDO M.D. APPLICATION PROJECT LEADER 1
--- NOTE | 2020-07-07 13:19 | PM.IMPN ---
Progress Note: A&P Assessment and Plan (1) Colonic mass: Code(s): K63.89 - Other specified diseases of intestine Status: Acute Assessment and Plan: Colonoscopy 07/07/20 revealed a fungating, friable, malignant appearing mass in the sigmoid colon with stigmata of bleeding from the mass -bx were taken, suspect primary colon cancer -further w/u ordered; CT to assess for additional lesions and CEA -Pt has stated that he does not want tx for this cancer. He has just lost his to [employer] and is not interested in cancer treatments -I spoke with Debra, pts daughter, about plan of care. She wants to see her dad and give it a day or two before signing up with hospice or pallititve care. They are interested in seeing the histology as well. (2) Bacteremia: Code(s): R78.81 - Bacteremia Status: Acute Assessment and Plan: Staphylococcus aureus growing in both blood cultures -await sensitivities -Pt has a leukocytosis of 23.6 on admission, now down to 20 -He had a hip sx back in august 2019. xray reviewed, ortho does not suspect infection. No signs of infection of the hip on exam -UA neg, concerns for PNA but pt not having symptoms. -Skin infection? contamination? (less likely due to it being in both bottles) -Continue vancomycin until sensitivities are back -Of note, pt states if he has confirmed colon cancer, he does not want further abx treatment. (3) GI bleed: Qualifiers: GI bleed type/associated pathology: melena Qualified Code(s): K92.1 - Melena Code(s): K92.2 - Gastrointestinal hemorrhage, unspecified Status: Acute Assessment and Plan: Due to colon mass -his hemoglobin dropped down to 6.8 and improved to 9.3 this morning after 2 units of blood 07/06/20 -Because of new diagnosis, pt wants no further labs drawn at this time as he is considering hospice -Home eliquis has been held with no plans of restarting (4) Sepsis: Code(s): A41.9 - Sepsis, unspecified organism Status: Acute Assessment and Plan: 2/2 above -Continue abx (5) ADELA (acute kidney injury): Code(s): N17.9 - Acute kidney failure, unspecified Status: Acute Assessment and Plan: Improving with blood transfusions and lasix -Will continue IV lasix and monitor closely (6) Pleural effusion: Code(s): J90 - Pleural effusion, not elsewhere classified Status: Acute Assessment and Plan: CXR shows small rightand moderate left pleural effusions with mild pulmonary edema -suspect due to high outpt heart failure. PNA being the cause seems less likely -continue lasix -echo ordered but now on hold due to pt does not want additional testing and may go hospice (7) Anemia: Qualifiers: Anemia type: unspecified type Qualified Code(s): D64.9 - Anemia, unspecified Code(s): D64.9 - Anemia, unspecified Status: Acute Assessment and Plan: As above (8) Atrial fibrillation: Code(s): I48.91 - Unspecified atrial fibrillation Status: Acute Assessment and Plan: RRR -likely due to infection and GI bleed -Continue metoprolol and tele -ekg reviewed (9) Congestive heart failure: Code(s): I50.9 - Heart failure, unspecified Status: Acute Assessment and Plan: As above -suspect high outpt heart failure at this time -echo on hold as above -Continue lasix (10) Leukocytosis: Qualifiers: Leukocytosis type: unspecified Qualified Code(s): D72.829 - Elevated white blood cell count, unspecified Code(s): D72.829 - Elevated white blood cell count, unspecified Status: Acute Assessment and Plan: As above (11) Hypertension: Code(s): I10 - Essential (primary) hypertension Status: Acute Assessment and Plan: last bp 113/57 -monitor closely with infection and GI bleed. -He is on metoprolol and lasix (12) C
[2020-07-07] MEDS: HYDROcodone/acetaminophen (*CRX) 5-325 MG TABLET 1 TAB PO (16:56)
[2020-07-07] MEDS: ALBUTEROL SULFATE (*SP) AEROSOL 1 PUFF INHALATION (20:50)
[2020-07-07] MEDS: FLUTICASONE/SALMETEROL 230-21 MCG INHALER 1 PUFF 2 PUFF INHALATION (20:53)
[2020-07-07] MEDS: METOPROLOL TARTRATE 50 MG TAB PO (20:55)
[2020-07-07] MEDS: MELATONIN 5 MG TABLET PO (21:07)
[2020-07-07] MEDS: ACETAMINOPHEN 500 MG TABLET PO (21:09)
[2020-07-08 05:38] LABS: Hematocrit 27.4 % (42.0-52.0); Hemoglobin 8.6 g/dL (14.0-18.0); Mean Corpuscular HGB Conc 31.4 g/dl (32-36); Mean Corpuscular Hemoglobin 28.9 pg (26-34); Mean Corpuscular Volume 91.9 fl (80-100); Mean Platelet Volume 10.7 fl (7.4-10.4); Platelet Count Result 156 k/mm3 (150-375); Red Blood Count 2.98 M/mm3 (4.6-6.20); Red Cell Distribution Width 17.3 % (11.5-14.5); White Blood Count 14.7 K/mm3 (4.5-10.0)
[2020-07-08 06:00] VITALS: BP 103/61; PULSE 77; RESP 18; TEMP 35.8; O2SAT 96
[2020-07-08 06:19] LABS: Carcinoembryonic Antigen 5.1 ng/mL (0.0-3.0)
--- NOTE | 2020-07-08 07:40 | WPDANESPN ---
Anes - Prog Note Post-Op Date/Time: 07/08/20 07:40 Cardiovascular status: normal Respiratory status: normal Airway patency: baseline Mental status: baseline Post-Op hydration status: normal Vital Signs: Last Vital Signs Temp 35.8 C L 07/08/20 06:00 Pulse 77 07/08/20 06:00 Resp 18 07/08/20 06:00 BP 103/61 07/08/20 06:00 Pulse Ox 96 07/08/20 06:00 Pain Score (VAS): 02/16 I/O: Intake & Output 07/07/20 07/07/20 07/08/20 15:59 23:59 07:59 Intake Total 340 480 270 Output Total 0 Balance 340 480 270 Laboratory Tests 07/08/20 05:22 07/07/20 05:33 07/08/20 07/08/20 05:22 05:22 WBC 14.7 H RBC 2.98 L Hgb 8.6 L Hct 27.4 L MCV 91.9 MCH 28.9 MCHC 31.4 L RDW 17.3 H Plt Count 156 MPV 10.7 H Carcinoembryonic Ag 5.1 H Microbiology 07/05/20 13:39 Blood Blood Culture - Preliminary Staphylococcus aureus 07/05/20 14:34 Blood Blood Culture - Preliminary Staphylococcus aureus Post-procedural complaints: none Patient Feedback: Patient satisfied with anesthetic care. Other Findings: Resting quietly in bed
[2020-07-08 08:00] VITALS: O2SAT 96
[2020-07-08] MEDS: FUROSEMIDE INJ 40 MG/4 ML VIAL 20 MG IV PUSH (08:57)
[2020-07-08] MEDS: MICONAZOLE NITRATE 2% CREAM 30 GM TUBE 1 APPLIC TOPICAL (08:57)
[2020-07-08] MEDS: AMOXICILLIN/CLAVULANATE K 875-125 MG TAB 1 TABLET PO (08:57)
[2020-07-08 08:58] VITALS: PULSE 73
[2020-07-08] MEDS: allopurinoL 100 MG TABLET PO (08:58)
[2020-07-08] MEDS: POTASSIUM CHLORIDE 20 MEQ TABLET.ER PO (08:58)
[2020-07-08] MEDS: METOPROLOL TARTRATE 50 MG TAB PO (08:58)
[2020-07-08] MEDS: SERTRALINE HCL 50 MG TABLET PO (08:58)
[2020-07-08] MEDS: CHOLECALCIFEROL 1,000 UNITS TABLET 1000 UNITS PO (08:58)
[2020-07-08] MEDS: MULTIVITAMINS /C LUTEIN (CENTRUM SILVER) TABLET *BKC 1 TAB PO (08:58)
[2020-07-08] MEDS: PANTOPRAZOLE 40 MG TABLET PO (09:00)
[2020-07-08] MEDS: FERROUS SULFATE 324 MG TABLET PO (09:01)
[2020-07-08] MEDS: ALBUTEROL SULFATE (*SP) AEROSOL 1 PUFF INHALATION (09:11)
[2020-07-08] MEDS: FLUTICASONE/SALMETEROL 230-21 MCG INHALER 1 PUFF 2 PUFF INHALATION (09:14)
[2020-07-08 09:21] VITALS: O2SAT 96
[2020-07-08 11:36] VITALS: BMI 23.3
--- NOTE | 2020-07-08 12:17 | PCNSR ---
On 07/08/20, the student,Khadijah Augustin, provided care and completed [facility] documentation on this patient. I have reviewed the student's documentation and agree with the findings.
--- NOTE | 2020-07-08 12:35 | PM.PNGS ---
Progress Note: A&P Assessment and Plan (1) Colonic mass: Code(s): K63.89 - Other specified diseases of intestine Status: Acute Assessment and Plan: Biopsy results from colonoscopy are still pending. CEA at 5.1. I had a long discussion with the patient and also called his daughter/Jenifer PAZ (with his permission) regarding plan. The patient is now refusing any treatment or surgery at this point. The family has discussed options with the patient and he does not want any treatment for this, including surgery, chemotherapy, or further invasive measures. They have requested that Hospice be consulted to discuss options for palliative care. I have called the Hospitalist and discussed this with them as well so they are aware. Will sign off the case. Please let us know if anything is needed in the future. (2) Acute blood loss anemia: Code(s): D62 - Acute posthemorrhagic anemia Status: Acute Additional Plan I have discussed the patient's case and plan of care with Dr. Machado. Subjective Subjective Date/Time Seen: 07/08/20 09:35 Patient reports: no new complaints, tolerating a regular diet, flatus and bowel movement Interval history: Patient reports feeling sore all over today. He denies any other specific complaints. No abdominal pain, nausea, or vomiting. Bowels are moving. He is tolerating a regular diet, which he has had his breakfast this morning. Review of Systems Review of Systems: All systems reviewed & are unremarkable except as noted in HPI and below Exam Const: General: no acute distress, alert, awake and tired appearing GI: Inspection: non-distended GI Palp: Yes Soft to palpation, No Tenderness to palpation present (GI), No Guarding due to palpation present (GI) and No Rebound tenderness present Auscultation: normal bowel sounds Skin: General skin exam: normal color Neuro: General: moves all extremities and no focal motor deficits Psych: Mental Status: mental status grossly normal Insight: Fair insight present (Psych) Judgement: Limited judgement present (Psych) Objective Data Vital Signs Vital Signs: Vital Signs - 24 hr 07/07/20 14:00 07/07/20 20:55 07/07/20 22:00 Temperature 98.2 F 97.2 F L Pulse Rate 101 H 101 H 94 Respiratory Rate 16 20 Blood Pressure 120/73 119/68 Pulse Oximetry 95 98 07/07/20 22:40 07/07/20 23:04 07/08/20 06:00 Temperature 96.5 F L Pulse Rate 77 Respiratory Rate 18 Blood Pressure 103/61 Pulse Oximetry 88 L 94 96 07/08/20 08:58 07/08/20 09:21 Temperature Pulse Rate 73 Respiratory Rate Blood Pressure Pulse Oximetry 96 Intake/Output Intake/Output: Intake & Output 07/05/20 07/06/20 07/07/20 07/08/20 23:59 23:59 23:59 23:59 Intake Total 720 1969 820 510 Output Total 0 Balance 720 1969 820 510 Meds/Results Medications: Active Medications Generic Name Dose Route Start Last Admin Trade Name Freq PRN Reason Stop Dose Admin Acetaminophen 500 mg 07/05/20 19:33 07/07/20 21:09 Acetaminophen 500 Mg Tablet PO 500 mg TID PRN Administration Pain 1-3 Hydrocodone Bitart/Acetaminophen 1 tab 07/05/20 19:33 07/07/20 16:56 Hydrocodone/Acetaminophen (*Crx) 5-325 Mg Tablet PO 1 tab Q8H PRN Administration Pain 4-6 Albuterol 1 puff 07/05/20 20:00 07/08/20 09:11 Albuterol Sulfate (*Sp) Aerosol 1 Puff INHALATION 1 puff Q12HRT SANDIE Administration Allopurinol 100 mg 07/06/20 09:00 07/08/20 08:58 Allopurinol 100 Mg Tablet PO 100 mg DAILY SANDIE Administration Amoxicillin/Clavulanate Potassium 1 tablet 07/05/20 21:00 07/08/20 08:57 Amoxicillin/Clavulanate K 875-125 Mg Tab PO 07/10/20 21:01 1 tablet Q12HR SANDIE Administration Atorvastatin Calcium 40 mg 07/05/20 21:00 07/07/20 20:59 Atorvastatin 40 Mg Tablet PO Not Given HS SANDIE Ferrous Sulfate 324 mg 07/05/20 17:00 07/08/20 09:01 Ferrous Sulfate 324 Mg Tablet PO 324 mg BIDWM SANDIE Administrat
[2020-07-08 14:00] VITALS: BP 113/60; PULSE 45; RESP 18; TEMP 36.6; O2SAT 97
--- NOTE | 2020-07-08 14:19 | P.PNIM_ITS ---
Progress Note: A&P Assessment and Plan (1) Colonic mass: Code(s): K63.89 - Other specified diseases of intestine Status: Acute Assessment and Plan: Colonoscopy 07/07/20 revealed a fungating, friable, malignant appearing mass in the sigmoid colon with stigmata of bleeding from the mass -bx were taken, suspect primary colon cancer -further w/u ordered; CT to assess for additional lesions and CEA -Pt has stated that he does not want tx for this cancer. He has just lost his to [employer] and is not interested in cancer treatments -I spoke with Debra, pts daughter, about plan of care. She wants to see her dad and give it a day or two before signing up with hospice or pallititve care. They are interested in seeing the histology as well. (2) Bacteremia: Code(s): R78.81 - Bacteremia Status: Acute Assessment and Plan: Staphylococcus aureus growing in both blood cultures -await sensitivities -Pt has a leukocytosis of 23.6 on admission, now down to 20 -He had a hip sx back in august 2019. xray reviewed, ortho does not suspect infection. No signs of infection of the hip on exam -UA neg, concerns for PNA but pt not having symptoms. -Skin infection? contamination? (less likely due to it being in both bottles) -Continue vancomycin until sensitivities are back -Of note, pt states if he has confirmed colon cancer, he does not want further abx treatment. (3) GI bleed: Qualifiers: GI bleed type/associated pathology: melena Qualified Code(s): K92.1 - Melena Code(s): K92.2 - Gastrointestinal hemorrhage, unspecified Status: Acute Assessment and Plan: Due to colon mass -his hemoglobin dropped down to 6.8 and improved to 9.3 this morning after 2 units of blood 07/06/20 -Because of new diagnosis, pt wants no further labs drawn at this time as he is considering hospice -Home eliquis has been held with no plans of restarting (4) Sepsis: Code(s): A41.9 - Sepsis, unspecified organism Status: Acute Assessment and Plan: 2/2 above -Continue abx (5) ADELA (acute kidney injury): Code(s): N17.9 - Acute kidney failure, unspecified Status: Acute Assessment and Plan: Improving with blood transfusions and lasix -Will continue IV lasix and monitor closely (6) Pleural effusion: Code(s): J90 - Pleural effusion, not elsewhere classified Status: Acute Assessment and Plan: CXR shows small rightand moderate left pleural effusions with mild pulmonary edema -suspect due to high outpt heart failure. PNA being the cause seems less likely -continue lasix -echo ordered but now on hold due to pt does not want additional testing and may go hospice (7) Anemia: Qualifiers: Anemia type: unspecified type Qualified Code(s): D64.9 - Anemia, unspecified Code(s): D64.9 - Anemia, unspecified Status: Acute Assessment and Plan: As above (8) Atrial fibrillation: Code(s): I48.91 - Unspecified atrial fibrillation Status: Acute Assessment and Plan: RRR -likely due to infection and GI bleed -Continue metoprolol and tele -ekg reviewed (9) Congestive heart failure: Code(s): I50.9 - Heart failure, unspecified Status: Acute Assessment and Plan: As above -suspect high outpt heart failure at this time -echo on hold as above -Continue lasix (10) Leukocytosis:
[2020-07-08] MEDS: HYDROcodone/acetaminophen (*CRX) 5-325 MG TABLET 1 TAB PO (15:51)
--- NOTE | 2020-07-08 15:58 | PM.DS ---
DS: Admitting Diagnosis Admitting Diagnosis Admitting Diagnosis: Dark stools DS: Discharge Diagnosis Discharge Diagnosis (1) Colonic mass: Code(s): K63.89 - Other specified diseases of intestine Status: Acute Assessment and Plan: The patient is a 75-year-old man with a history of AFib on long-term anticoagulation, mixed systolic and diastolic CHF, coronary artery disease status post bypass, COPD, who presents emergency room from [facility] with dark stools. Gross blood was noted on exam per the emergency department physician and he is being admitted in this setting for further workup. Initial vitals showed he was afebrile, heart rate 91, blood pressure 124/63, normal respiratory rate and oxygenation on room air. Initial labs showed Leukocytosis at 23,000, with elevated neutrophils, hemoglobin of 8, hematocrit 26, with a creatinine at 2.1, BUN 57, normal electrolytes, elevated alk-phos at 181. Urinalysis was ordered showing no signs of an infection. Chest x-ray showed possible pneumonia infection so antibiotics were started and he was admitted into the hospital for further evaluation of pneumonia, CHF exacerbation on IV Lasix, and GI consultation for GI bleed. Patient H&H drop below 7 he was given a transfusion of blood with improvement. GI performed an EGD which found gastritis and recommended PPI therapy. Colonoscopy was completed and found a large sigmoid mass suspicious for colon cancer and believes this is the acute cause of his anemia and GI bleed. Biopsies were taken and pending. The patient's urine cultures began growing Staph aureus and antibiotics were switched to IV vancomycin. The patient was informed of his possible cancer and bacteremia diagnosis. The patient who recently lost his wanted to consider hospice care. The patient talked to his family and they made the decision to be discharged back to [facility] and be placed on hospice. The patient does not want any medications at this time, not eating anything for pain. I have completed his discharge paperwork at this time. Hospice can further adjust his medications upon discharge. (2) Bacteremia: Code(s): R78.81 - Bacteremia Status: Acute Assessment and Plan: Staphylococcus aureus growing in both blood cultures. I have not prescribed any antibiotics upon discharge and the patient understands that without treatment of his acute infection he will become septic and . Patient does not want treatment for his bacteremia and would like to be discharged on hospice. (3) GI bleed: Qualifiers: GI bleed type/associated pathology: melena Qualified Code(s): K92.1 - Melena Code(s): K92.2 - Gastrointestinal hemorrhage, unspecified Status: Acute Assessment and Plan: He does not want any further treatment, but to be discharged on Hospice. (4) Sepsis: Code(s): A41.9 - Sepsis, unspecified organism Status: Acute Assessment and Plan: (5) ADELA (acute kidney injury): Code(s): N17.9 - Acute kidney failure, unspecified Status: Acute Assessment and Plan: Cr improving. (6) Pleural effusion: Code(s): J90 - Pleural effusion, not elsewhere classified Status: Acute Assessment and Plan: (7) Anemia: Qualifiers: Anemia type: unspecified type Qualified Code(s): D64.9 - Anemia, unspecified Code(s): D64.9 - Anemia, unspecified Status: Acute Assessment and Plan: (8) Atrial fibrillation: Code(s): I48.91 - Unspecified atrial fibrillation Status: Acute (9) Congestive heart failure: Code(s): I50.9 - Heart failure, unspecified Status: Acute Assessment and Plan: (10) Leukocytosis: Qualifiers: Leukocytosis type: unspecified Qualified Code(s): D72.829 - Elevated white blood cell count, unspecified Code(s): D72.829 - Elev
--- NOTE | 2020-07-08 16:32 | WPDGIPROGNO ---
Progress Note: A&P Assessment and Plan (1) Colonic mass: Code(s): K63.89 - Other specified diseases of intestine Status: Acute Assessment and Plan: large sigmoid mass found yesterday as main cause of gib/anemia patient does not want any treatment or work up, he just would like to be discharged under hospice cancel CT scan and oncology consult (2) GI bleed: Qualifiers: GI bleed type/associated pathology: melena Qualified Code(s): K92.1 - Melena Code(s): K92.2 - Gastrointestinal hemorrhage, unspecified Status: Acute (3) Acute blood loss anemia: Code(s): D62 - Acute posthemorrhagic anemia Status: Acute Assessment and Plan: holding blood thinners new diagnosis of colon mass (pending bx) (4) Sepsis: Code(s): A41.9 - Sepsis, unspecified organism Status: Acute Assessment and Plan: also noted Staph bacteremia, ID on board (5) Bacteremia: Code(s): R78.81 - Bacteremia Status: Acute (6) Coronary artery disease: Code(s): I25.10 - Atherosclerotic heart disease of pala coronary artery without angina pectoris Status: Acute (7) Chronic obstructive pulmonary disease: Code(s): J44.9 - Chronic obstructive pulmonary disease, unspecified Status: Acute (8) Atrial fibrillation: Code(s): I48.91 - Unspecified atrial fibrillation Status: Acute Subjective Date/time seen: 07/08/20 16:32 Interval history: patient has made a decision to get hospice, daugther at bedside Review of Systems Review of Systems: All systems reviewed & are unremarkable except as noted in HPI and below Exam Const: Other: pleasant frail elderly HENMT: General nose exam: Normal nares present Eyes: General: appearance normal, both eyes and all related structures Neck: Neck: supple Resp: Auscultation: clear to auscultation bilaterally Cardio: Rhythm: abnormal rhythm irregularly irregular GI: Inspection: non-distended GI Palp: Yes Soft to palpation and No Tenderness to palpation present (GI) Auscultation: normal bowel sounds Neuro: Speech: normal speech Extrem: General: pedal edema Psych: Mental Status: mental status grossly normal Objective Data Vital Signs Vital Signs: Vital Signs - 24 hr 07/07/20 20:55 07/07/20 22:00 07/07/20 22:40 Temperature 97.2 F L Pulse Rate 101 H 94 Respiratory Rate 20 Blood Pressure 119/68 Pulse Oximetry 98 88 L 07/07/20 23:04 07/08/20 06:00 07/08/20 08:00 Temperature 96.5 F L Pulse Rate 77 Respiratory Rate 18 Blood Pressure 103/61 Pulse Oximetry 94 96 96 07/08/20 08:58 07/08/20 09:21 07/08/20 14:00 Temperature 98 F Pulse Rate 73 45 L Respiratory Rate 18 Blood Pressure 113/60 Pulse Oximetry 96 97 Intake/Output Intake/Output: Intake & Output 07/05/20 07/06/20 07/07/20 07/08/20 23:59 23:59 23:59 23:59 Intake Total 720 1969 820 750 Output Total 0 Balance 720 1969 820 750 Meds/Results Medications: Active Medications Generic Name Dose Route Start Last Admin Trade Name Freq PRN Reason Stop Dose Admin Acetaminophen 500 mg 07/05/20 19:33 07/07/20 21:09 Acetaminophen 500 Mg Tablet PO 500 mg TID PRN Administration Pain 1-3 Hydrocodone Bitart/Acetaminophen 1 tab 07/05/20 19:33 07/08/20 15:51 Hydrocodone/Acetaminophen (*Crx) 5-325 Mg Tablet PO 1 tab Q8H PRN Administration Pain 4-6 Albuterol 1 puff 07/05/20 20:00 07/08/20 09:11 Albuterol Sulfate (*Sp) Aerosol 1 Puff INHALATION 1 puff Q12HRT SANDIE Administration Allopurinol 100 mg 07/06/20 09:00 07/08/20 08:58 Allopurinol 100 Mg Tablet PO 100 mg DAILY SANDIE Administration Amoxicillin/Clavulanate Potassium 1 tablet 07/05/20 21:00 07/08/20 08:57 Amoxicillin/Clavulanate K 875-125 Mg Tab PO 07/10/20 21:01 1 tablet Q12HR SANDIE Administration Atorvastatin Calcium 40 mg 07/05/20 21:00 07/07/20 20:59 Atorvastatin 40 Mg
== END 2020-07-08 18:30 | disposition hospice, home (50) | DRG 871 ==
LOC: ANHED 12:10 → ANH3MEDSUR 13:06
PROVIDERS: Emergency Medicine; Internal Medicine Gastroenterology; Physician Assistant; Admitting Provider Internal Medicine; Emergency Provider Emergency Medicine; Visit Provider Physician Assistant
PROC: 0DJ08ZZ Inspection of Upper Intestinal Tract, Via Natural or Artificial Opening Endoscopic (ICD-10-PCS; CPT 43235; principal; 2020-07-07 08:00)
DX: A41.9 Sepsis, unspecified organism (principal); I50.43 Acute on chronic combined systolic (congestive) and diastolic (congestive) heart failure; J18.9 Pneumonia, unspecified organism; K92.2 Gastrointestinal hemorrhage, unspecified; I50.42 Chronic combined systolic (congestive) and diastolic (congestive) heart failure; J90 Pleural effusion, not elsewhere classified; N17.9 Acute kidney failure, unspecified; D62 Acute posthemorrhagic anemia; N39.0 Urinary tract infection, site not specified; Z79.01 Long term (current) use of anticoagulants; Z79.82 Long term (current) use of aspirin; Z87.891 Personal history of nicotine dependence; I48.91 Unspecified atrial fibrillation; I25.10 Atherosclerotic heart disease of native coronary artery without angina pectoris; Z95.1 Presence of aortocoronary bypass graft; E78.5 Hyperlipidemia, unspecified; K21.9 Gastro-esophageal reflux disease without esophagitis; J44.9 Chronic obstructive pulmonary disease, unspecified; I11.0 Hypertensive heart disease with heart failure; Z86.16 Personal history of COVID-19; M10.9 Gout, unspecified; E55.9 Vitamin D deficiency, unspecified; Z95.2 Presence of prosthetic heart valve; K59.09 Other constipation; Z85.828 Personal history of other malignant neoplasm of skin; Z66 Do not resuscitate; K29.70 Gastritis, unspecified, without bleeding; B95.61 Methicillin susceptible Staphylococcus aureus infection as the cause of diseases classified elsewhere; K57.10 Diverticulosis of small intestine without perforation or abscess without bleeding; K64.8 Other hemorrhoids; K57.30 Diverticulosis of large intestine without perforation or abscess without bleeding; K63.5 Polyp of colon; K63.89 Other specified diseases of intestine
CPT/HCPCS: 36415; 36430; 51701; 71045; 73502; 80048; 80053; 81003; 81210; 81275; 81301; 81311; 82378; 83735; 84145; 85014; 85018; 85025; 85027; 85610; 85730; 86140; 86850; 86900; 86901; 86923; 87040; 87077; 87186; 88305; 88342; 88381; 93005; 93970; 94640; 96374; 99285; A9270; C9113; J1940; J1956; J2704; J3370; J7030; J7050; J7120; P9016